=== PATIENT | male | born 2000 | race Caucasian/White ===

== ENCOUNTER 2018-11-17 11:31 | Outpatient (REF) | payer SELFPAY ==
[2018-11-20 12:11] LABS: Campylobacter PCR SEE COMMENTS; Salmonella PCR SEE COMMENTS; Shiga Toxin PCR SEE COMMENTS
[2018-11-20 14:16] LABS: Shigella/Enteroinvasive Ecoli SEE COMMENTS
== END 2018-11-17 11:51 ==
LOC: LBN 11:31
PROVIDERS: PCP Pediatrics; Visit Provider Internal Medicine Gastroenterology
DX: R10.12 Left upper quadrant pain (principal); R19.4 Change in bowel habit; K92.2 Gastrointestinal hemorrhage, unspecified
CPT/HCPCS: 87186; 87505; 83630; 87177; 87324

== ENCOUNTER 2021-03-29 19:06 | Outpatient (REF) | payer OTHER, SELFPAY ==
[2021-03-30 15:41] LABS: COVID-19 RT-PCR UVMMC Result Negative (Negative)
== END 2021-03-29 19:07 | disposition home or self-care (01) ==
LOC: NCHCN 19:06
PROVIDERS: PCP Pediatrics; Visit Provider Family Medicine
DX: Z20.822 Contact with and (suspected) exposure to COVID-19 (principal)
CPT/HCPCS: U0003

== ENCOUNTER 2021-06-01 10:48 | Outpatient (REF) | payer OTHER, SELFPAY ==
--- NOTE | 2021-06-01 09:30 | SKI_PTH ---
PATIENT: Jase Monet LOC: [facility] U#:[id number] AGE/SX: 21/M ROOM: RE06/01/[address]: RAYMOND Lang : 2000 BED: DIS: 06/01/2021 SPEC #: [id number] RECD: 06/01/21 17:28 STATUS: NAOMI REElisabeth #: [id number] JEREMY: 06/01/21 09:[address]: Leonardo Mayorga DEPT: Surgical Specimen RECD BY: Zulma Roa ENTERED: 06/01/21 17:28 SP TYPE: JARROD CALIXTO DR: Krys Elliott Unknown,Unknown Tissues: 1 - SKIN BIOPSY(SHAVE/PUNCH) Procedures: SKIN LEVEL 4 SPECIAL STAIN 1 Comments: [id number]
== END 2021-06-01 10:49 | disposition home or self-care (01) ==
LOC: LBN 10:48
PROVIDERS: Visit Provider Physician Assistant
DX: L30.9 Dermatitis, unspecified (principal)
CPT/HCPCS: 88305; 88312

== ENCOUNTER 2021-10-31 09:49 | Outpatient (REF) | payer OTHER, SELFPAY | END 2021-10-31 09:50 | disposition home or self-care (01) | LOC: LBN 09:49 | PROVIDERS: Visit Provider Nurse Practitioner Family | DX: J02.9 Acute pharyngitis, unspecified (principal) | CPT/HCPCS: 87070 ==

== ENCOUNTER 2024-04-27 21:57 | Emergency (ER) | payer BC, SELFPAY ==
[2024-04-27 22:01] VITALS: BP 134/86; PULSE 67; RESP 14; TEMP 36.7; O2SAT 98
--- NOTE | 2024-04-27 22:28 | ED.GENADUL_ITS ---
Discharge Plan Disposition Patient Disposition: Home Condition: Stable Discharge Details Clinical Impression: BRBPR (bright red blood per rectum) Primary Care Provider: Unknown,Unknown ED Provider: Petr Cunningham Home Meds and New Rx's Prescriptions: No Action No Known Home Meds Discharge Instructions Additional Instructions: Your evaluated and show any emergent concerning findings I placed you on a follow-up list to follow-up with a general surgeon for potential colonoscopy If you feel more ill, have severe abdominal pain or difficulty breathing return to the emergency department for reevaluation HPI General Mode of arrival: ambulatory . Date/Time Provider Initiated Documentation: 04/27/24 22:04 . Limitations to Documentation: no limitations . Information obtained by: patient . History of Present Illness 24 year old M presents to the emergency department with the chief complaint of Bloody bowel movements, described as moderate, Patient started experiencing this year(s) (2) and it has been intermittent. No relieving factors improve symptom(s), No exacerbating factors reported . Patient notes no other symptoms.. Patient did receive the following treatments prior to arrival, none Related Data Home Medications ?Medication ?Instructions ?Recorded ?Confirmed Unknown [No Known Home Meds] 11/13/21 Allergies Allergy/AdvReac Type Severity Reaction Status Date / Time No Known Allergies Allergy Unverified 08/09/22 09:14 General Stated Complaint: GI Bleed HEATHER: 3 Review of Systems All systems reviewed & are unremarkable except as noted in HPI and below Constitutional Constitutional: Denies chills and Denies fever(s) Cardiovascular Cardiovascular: Denies chest pain and Denies dyspnea Respiratory Respiratory: Denies cough and Denies dyspnea Gastrointestinal Gastrointestinal: Denies abdominal pain, Reports hematochezia, Denies nausea and Denies vomiting Psychiatric Psychiatric: Denies depression Exam Const General: no acute distress Orientation: alert [facility] Head: normal to inspection Ears: external ears normal General nose exam: external nose normal Mouth: moist mucous membranes Eyes General: appearance normal, both eyes and all related structures Neck Neck: normal visual inspection Resp Effort & Inspection: normal respiratory effort and able to speak in complete sentences Cardio Rate: regular rate GI Palpation: soft and nontender Skin General skin exam: no rashes or lesions noted Neuro General: patient alert and patient oriented x3 Extrem General: normal to inspection Psych Mental Status: mental status grossly normal Course Vital Signs Vital signs: Vital Signs Temperature 36.7 C 04/27/24 22:01 Pulse 67 01/28/25 22:01 Respiratory Rate 14 04/27/24 22:01 Blood Pressure 134/86 04/27/24 22:01 Pulse Oximetry 98 04/27/24 22:01 Temperature 36.7 C 04/27/24 22:01 Temperature Source Temporal Artery Scan 04/27/24 22:01 Pulse 67 04/27/24 22:01 Respiratory Rate 14 04/27/24 22:01 Blood Pressure 134/86 04/27/24 22:01 Blood Pressure Position Sitting 04/27/24 22:01 Pulse Oximetry 98 04/27/24 22:01 Oxygen Delivery Method Room Air 04/27/24 22:01 Oxygen Flow Rate 0 04/27/24 22:01 Pain Level 2 04/27/24 22:01 Medical Decision Making 24-year-old male who denies any chronic medical problems comes in with chief complaint of intermittent bloody bowel movements for couple years. He denies any fevers, vomiting. He says today he had a bloody bowel movement so decided to get evaluated. He is well-appearing on exam and hemodynamically stable. He has a soft nontender abdomen. No visible bleeding currently on exam the rectum, no external hemorrhoids. I do suspect he probably likely has internal hemorrhoids given he has no pain. Will check a CBC and CMP and reassess. Patient has very mild anemia no prior to compare to. She remains hemodyna mically stable. I offered to refer him to general surgery but he declines because he can talk with his PCP tomorrow about possibly being referred to a shoe folder. Return precautions given Differential Diagnosis Differential Diagnosis: Anemia, internal hemorrhoids Lab Data Lab results reviewed: Yes I reviewed the patient's lab results. Quality:SDOH Health Related Social Needs: No Data to Display PFSH All Active Problems (Updated 04/27/24 @ 22:48 by Petr Cunningham MD) BRBPR (bright red blood per rectum) (Acute) Pneumonia (Acute) Social History Smoking/Tobacco Use Status: Never Smoking risk assessment performed?: Yes Alcohol Intake: current Alcohol Intake frequency: a few times a week Alcohol type: beer Drug use: Occasionally Substance use type: marijuana Housing: apartment
[2024-04-27 22:39] LABS: Abs Immature Grans 0.04 10^3/uL (0.0-0.06); Absolute Basophil Count 0.08 10^3/uL (0.0-0.2); Absolute Eosinophil Count 0.42 10^3/uL (0.0-0.7); Absolute Lymphocyte Count 2.27 10^3/uL (1.2-3.4); Absolute Monocyte Count 1.37 10^3/uL (0.1-0.8); Absolute Neutrophil Count 5.15 10^3/uL (1.2-6.7); Basophils % 0.9 %; Eosinophils % 4.5 %; HCT 40.3 % (40.0-50.0); HGB 13.3 g/dL (13.5-17.5); Immature Grans % 0.4 %; Lymphocytes % 24.3 %; MCV 82 fL (80-95); MPV 8.4 fL (8.0-11.0); Monocytes % 14.7 %; Neutrophils % 55.2 %; Platelet Count 362 10^3/uL (130-400); RBC 4.93 10^6/uL (4.36-5.78); RDW 13.1 % (11.8-14.1); RDW-SD 38.6 fL; WBC 9.33 10^3/uL (4.4-10.8)
[2024-04-27 22:51] LABS: ALT 14 U/L (16-63); AST 12 U/L (15-37); Alkaline Phosphatase 63 U/L (46-116); Anion Gap 4.8 mmol/L (3-11); BUN 13 mg/dL (7-18); Bilirubin, Total 0.39 mg/dL (0.2-1.0); CO2 31.2 mmol/L (21.0-32.0); CREATININE 1.2 mg/dL (0.70-1.30); Calcium 8.4 mg/dL (8.5-10.1); Chloride 103 mmol/L (98-107); Estimated GFR 85.53 (mL/min/1.73m2); Glucose 132 mg/dL (74-106); Lipase 59 U/L (<78); Potassium 3.8 mmol/L (3.5-5.1); Sodium 139 mmol/L (136-145); Total Protein 6.9 g/dL (6.4-8.2)
[2024-04-27 23:19] LABS: Influenza A PCR Negative (Negative); Influenza B PCR Negative (Negative); RSV PCR Negative (Negative)
[2024-04-27 23:28] LABS: COVID-19 PCR Positive (Negative); Source Nasopharynx
== END 2024-04-27 23:37 | disposition home or self-care (01) ==
LOC: ER 23:53
PROVIDERS: Emergency Provider Emergency Medicine
DX: K62.5 Hemorrhage of anus and rectum (principal); U07.1 COVID-19
CPT/HCPCS: 80053; 83690; 87637; 99283; 83735; 85025

== ENCOUNTER 2024-05-07 17:18 | Outpatient (REF) | payer BC, SELFPAY ==
[2024-05-07 15:27] LABS: Abs Immature Grans 0.04 10^3/uL (0.0-0.06); Absolute Basophil Count 0.08 10^3/uL (0.0-0.2); Absolute Lymphocyte Count 2.24 10^3/uL (1.2-3.4); Absolute Monocyte Count 1.54 10^3/uL (0.1-0.8); Absolute Neutrophil Count 6.17 10^3/uL (1.2-6.7); Basophils % 0.8 %; Eosinophils % 3.8 %; HCT 36.3 % (40.0-50.0); HGB 11.9 g/dL (13.5-17.5); Immature Grans % 0.4 %; Lymphocytes % 21.4 %; MCH 26.7 pg (27.0-33.0); MCHC 32.8 % (32.0-36.0); MCV 82 fL (80-95); Monocytes % 14.7 %; Neutrophils % 58.9 %; Platelet Count 429 10^3/uL (130-400); RBC 4.45 10^6/uL (4.36-5.78); RDW 13.2 % (11.8-14.1); RDW-SD 39.4 fL; WBC 10.47 10^3/uL (4.4-10.8)
[2024-05-07 15:39] LABS: Diff Comment Diff Reviewed; RBC Morphology Normal
[2024-05-07 16:15] LABS: ALT 19 U/L (16-63); AST 12 U/L (15-37); Albumin 2.7 g/dL (3.4-5.0); Alkaline Phosphatase 65 U/L (46-116); Anion Gap 1.7 mmol/L (3-11); BUN 11 mg/dL (7-18); C-Reactive Protein 12.13 mg/dL (<or=0.5); CO2 31.3 mmol/L (21.0-32.0); CREATININE 1.1 mg/dL (0.70-1.30); Calcium 8.5 mg/dL (8.5-10.1); Chloride 102 mmol/L (98-107); Estimated GFR 94.95 (mL/min/1.73m2); Glucose 83 mg/dL (74-106); Potassium 4.6 mmol/L (3.5-5.1); Sodium 135 mmol/L (136-145); Total Protein 6.2 g/dL (6.4-8.2)
== END 2024-05-07 17:19 | disposition home or self-care (01) ==
LOC: NCHCN 17:18
PROVIDERS: PCP Family Medicine; Visit Provider Family Medicine
DX: K50.90 Crohn's disease, unspecified, without complications (principal)
CPT/HCPCS: 80053; 85025; 86140

== ENCOUNTER 2024-05-11 13:42 | Outpatient (REF) | payer BC, SELFPAY ==
--- OUTSIDE RECORDS SUMMARY | 2024-05-11 13:50 | XMS_ITS | Encounter Summary ---
Author Organization [facility] Address [facility] [place] [address] Care Team Providers Care Retail Delivery Driver Name Role Phone Marvin Irving MD, Lm Primary Care Provider [phone] Reason for Visit * Reason Comments Dermatitis Encounter Details Date Type Department Care Team (Late st Contact Info) Description 11/15/2014 4:15 PM EDT Office Visit Dermatology at [facility] [address] [place] [address] Bianca Griffith MD [facility] [address] [address] Psoriasis Discharge Disposition: Home Social History Tobacco Use Types Packs/Day Years Used Date Smoking Tobacco: Never Assessed Sex and Gender Information Value Date Recorded Sex Assigned at Not on file Gender Identity Not on file Sexual Orientation Not on file documented as of this encounter Patient Instructions * Patient Instructions* Radha Wyman - 11/15/2014 5:05 PM EDT Plan for Jase: -- I recommend rotating OTC dandruff shampoos containing salicylic acid (Tsal), zinc pyrithione (Head and Shoulders), and selenium sulfide (Selsun Blue) nightly. These shampoos must sit in contact with the scalp for 10 minutes to be effective - apply to wet scalp and then wrapping head in a towel while the child reads or watches TV can be helpful. -- Start Rx: Hydrocortisone 2.5% ointment twice daily for 10-14 days in the armpits and 5-7 days for the eyelids; then, reduce to just weekends. -- Start Rx: Triamcinolone lotion twice daily for scalp documented in this encounter Progress Notes * Angie Jara, LEARNING OPERATIONS SPECIALIST - 11/15/2014 4:47 PM EDT Images from the original note were not included. PEDIATRIC DERMATOLOGY NEW PATIENT VISIT CHIEF COMPLAINT: Chief Complaint Patient presents with ??? Dermatitis REFERRED BY: Loni Ramirez, PUBLIC ADMINISTRATION TEACHER [address] [place] [address] HISTORY OF PRESENT ILLNESS: Jase Monet is a 14 y.o. male, here with his mom Lynne today for consultation at the requestof Loni Ramirez for evaluation of a rash in his armpits. This first appeared in early August. Previous treatments include ketoconazole cream and clotrimazole cream with no relief. He did try his mom's protopic which helped. He notices that if he sweats it is more irritated. He uses Old Spice [place], dry not gel. Mom reports that she and her daughter are both allergic to topical steroids. The patient's dermatology intake form was reviewed, signed, and dated. Okay to leave a detailed message on home number. His relevant PMH, FH, and SH includes: PAST MEDICAL HISTORY: Otherwise healthy FAMILY HISTORY: Eczema Acne Tinea Pedis Psoriasis- Maternal Aunt SOCIAL HISTORY: Lives with Mom Lynne Dad Waldo Sister's Molly 9 Mera 14 Brother Lionel 7 MEDICATIONS: None ALLERGIES: Allergies not on file REVIEW OF SYSTEMS: Please see HPI and PMH. No fevers, rhinorrhea, cough, decreased appetite, diarrhea, or vomiting. PHYSICAL EXAMINATION: Christy skin type II The patient is a well appearing male who is developmentally appropriate. A complete skin examination was performed including the scalp, face, eyelids, ears, lips, neck, chest, back, abdomen, buttocks, bilateral arms and legs, bilateral hands and feet, and nails. Findings were within normal limits except for the following: - Well demarcated pink slightly scaly plaque in the left axillary vault, no notable fluorescence with Wood's lamp. - well defined pink slight scaly plaque in the right axilla - small number of small inflammatory papules on back and chest, as well as forehead - no evidence of scarring. - thin pink scaly plaques throughout the scalp - thin pink plaques in the bilateral medial upper eyelids and medial canthi ASSESSMENT AND PLAN: Well-demarcated pink scaly plaques in the axilla with thick scaly plaques in the scalp, most consistent with psoriasis. +family history of psoriasis also makes this diagnosis themost likely. Lack of fluorescence with Cantu lamp makes erythrasma unlikely. We discussed the pathophysiology of psoriasis which is not completely understood but involves abnormal inflammation in the skin characterized by a mainly Th1 and Th17 cell infiltrate. Certain genes confer a risk of psoriasis, and external factors such as obesity and smoking may trigger the clinicaldevelopment in genetically prone individuals. Psoriatric arthritis develops in up to 30% of patients with psoriasis and most commonly presents as an asymmetric oligoarthritis or as enthesitis (most commonly of the Achillies tendon insertion on the calcaneus). Joints may be red, hot, and swollen or patients may have achy joint pain that is worst in the morning. Psoriasis is a systemic inflammatory disease and has been shown to increase the risk of cardiovascular events including myocardial infarction and stroke. Psoriasis is a chronic inflammatory skin condition, and that treatment is not aimed at curing the disease but instead at controlling it. Discussed the evidence that obesity worsens psoriasis, and encouraged weight loss and exercise. There is convincing evidence in the medical literature now that pso riasis is an independent risk factor for coronary artery disease, so a healthy lifestyle is crucial. Discussed the warning signs of psoriatic arthritis (asymmetric inflammatory oligoarthritis which can affect small and large joints, and enthesitis most typically on the Achilles insertion onto the calcaneus). The National Psoriasis foundation is an excellent resource for families (www.psoriasis.org) and primary care providers. The most up-to-date guidelines recommend that pediatric patients with psoriasis should undergo regular screening for metabolic syndrome as follows: Ages 2-8 year old: no routine bloodwork Ages 9 and older: annual lipid screen; AST/ALT and fasting glucose if overweight or obese -- Start Rx: Hydrocortisone 2.5% ointment BID for 10-14 days in the armpits and 5-7 days for the eyelids; then, reduce to just weekends. Can increase to triamcinolone at next visit if need be. Unfortunately his insurance will not cover Protopic. -- Start Rx: Triamcinolone lotion BID for scalp -- recommended rotating OTC dandruff shampoos containing salicylic acid (Tsal), zinc pyrithione (Head and Shoulders), and selenium sulfide (Selsun Blue) nightly. Explained that these shampoos must sit in contact with the scalp for 10 minutes to be effective - applying to scalp then wrapping head june towel while the child reads or watches TV can be helpful. RTC: 3 weeks (Level 2) Angie Jara CMA has performed the documentation for this encounter in the presence of and actingas a scribe for Dr. Griffith. I performed the above scribed services and agree with the accuracy of the documentation in this encounter. Radha Wyman has performed the documentation for this encounter in the presence of and acting asa scribe for Dr. Griffith. I performed the above scribed services and agree with the accuracy of the documentation in this encounter. Bianca Griffith MD Seat Cover Cutter, Pediatric Dermatology Section of Dermatology [facility], [address]. [facility] documented in this encounter Plan of Treatment Not on file documented as of this encounter Visit Diagnoses Diagnosis Psoriasis Other psoriasis documented in this encounter Care Teams Retail Delivery Driver Relationship Specialty Start Date End Date [place] [address] PCP - General 02/20/10 12/01/14 documented as of this encounter
--- OUTSIDE RECORDS SUMMARY | 2024-05-11 13:50 | XMS_ITS | Encounter Summary ---
Author Organization [facility] Address [address] [place] [address] Care Team Providers Care Electrical Engineer Mep Name Role Phone Lm Wong MD Primary Care Provider Paco mendez Unknown, Provider Primary Care Provider Lm Trammell MD Unavailable Unavailable Encounter Details Date Type Department Care Team (Late st Contact Info) Description 03/29/2021 Lab Requisition [facility] Pathology & Laboratory Medicine - [address] [address] Outr Resulting Lab, Provider Social History Tobacco Use Types Packs/Day Years Used Date Smoking Tobacco: Never Assessed Sex and Gender Information Value Date Recorded Sex Assigned at Not on file Legal Sex Male 18:30 EST Gender Identity Not on file Sexual Orientation Not on file documented as of this encounter Plan of Treatment Not on file documented as of this encounter Procedures Procedure Name Priority Date/Time Associated Diagnosis Comments ZZCOVID-19 TEST [facility] PCR Today 03/29/2021 11:15 EST COVID-19 TESTING Routine 03/29/2021 11:1 5 EST documented in this encounter Results * COVID-19 TEST [facility] PCR (03/29/2021 11:15 EST) Swab 03/29/2021 11:1 5 EST 03/29/2021 21:48 EST us Provider Outr Resulting Lab MICROBIOLOGY - GENER AL ORDERABLES Final Result [facility] [address] [place] [address] * COVID-19 TESTING (03/29/2021 11:15 EST) COVID-19 rt-PCR Result Negative Negative 03/30/2021 15:37 EST [facility] Comment: This test has not been FDA cleared or approved. This test has been authorized by FDA under an EUA for use by authorized laboratories. This test has been authorized only for detection of nucleic acid from 2019-nCoV, not for any other viruses or pathogens. This test is only authorized for the duration of the declaration that circumstances exist justifying the authorization of emergency use of in vitro diagnostic tests for detection and/or diagnosis of 2019-nCoV under section 564(b)(1) of Act, 21 U.S.C ?? 360bbb-3(b) (1), unless the authorization is terminated or revoked sooner. Negative results do not preclude 2019-nCoV infection and should not be used as the sole basis for treatment or other patient management decisions. Negative results must be combined with clinical observations, patient history, and epidemiological information. Performed on the Possible Webher Fusion instrument Performing Lab [place] [facility] Lab 03/30/2021 15:37 EST [facility] Swab 03/29/2021 11:1 5 EST 03/29/2021 21:48 EST us Provider Outr Resulting Lab MICROBIOLOGY - GENER AL ORDERABLES Final Result Performing Organization Address [facility] Co de Phone Number [facility] [address] [place] [address] documented in this encounter Visit Diagnoses Not on filedocumented in this encounter Care Teams Electrical Engineer Mep Relationship Specialty Start Date End Date Lm Wong MD PCP - General 02/09/15 04/30/21 Unknown, MD Cammy PCP - General 05/01/21 Lm Wong MD 05/01/21 documented as of this encounter
--- OUTSIDE RECORDS SUMMARY | 2024-05-11 13:50 | XMS_ITS | Clinical Summary ---
Author Organization [facility] Address [address] [place] [address] Care Team Providers Care Automation And Controls Instructor Name Role Phone Unknown, Provider Primary Care Provider David Wong, Lm Zavala MD Unavailable Unavailable Social History Tobacco Use Types Packs/Day Years Used Date Smoking Tobacco: Never Assessed Sex and Gender Information Value Date Recorded Sex Assigned at Not on file Legal Sex Male 18:30 EST Gender Identity Not on file Sexual Orientation Not on file Plan of Treatment Health Maintenance Due Date Last Done Comments Hepatitis C Screen 2000 Hepatitis B Vaccine (1 of 3 - 19+ 3-dose series) 02/22 COVID-19 Vaccine (2023- season) 2023 Insurance [facility] Care Teams Automation And Controls Instructor Relationship Specialty Start Date End Date Unknown, Cammy, PCP - General 05/01/21 Lm Wong MD 05/01/21
--- OUTSIDE RECORDS SUMMARY | 2024-05-11 13:50 | XMS_ITS | Encounter Summary ---
Author Organization [facility] Address [facility] [place] [address] Care Team Providers Care Columnist Name Role Phone Lm Wong MD Primary Care Provider [phone] Reason for Visit * Reason Comments Follow-up Encounter Details Date Type Department Care Team (Late st Contact Info) Description 12/06/2014 2:30 PM EDT Office Visit Dermatology at [facility] [address] [place] [address] Bianca Griffith MD [facility] [address] [place] [address] Psoriasis Discharge Disposition: Home Social History Tobacco Use Types Packs/Day Years Used Date Smoking Tobacco: Never Sex and Gender Information Value Date Recorded Sex Assigned at Not on file Gender Identity Not on file Sexual Orientation Not on file documented as of this encounter Patient Instructions * Patient Instructions* Radha Wyman - 12/06/2014 4:02 PM EDT Plan for Jase: -- Continue Rx: Hydrocortisone 2.5% ointment twice daily on weekends. Can increase to triamcinoloneat next visit if need be. Unfortunately his insurance will not cover Protopic. -- Continue Rx: Triamcinolone lotion twice daily for scalp on weekends -- continue rotating OTC dandruff shampoos containing salicylic acid (Tsal), zinc pyrithione (Head and Shoulders), and selenium sulfide (Selsun Blue) nightly. Explained that these shampoos must sit in contact with the scalp for 10 minutes to be effective - applying to scalp then wrapping head in a towel while the child reads or watches TV can be helpful --Start Rx: Protopic apply topically to armpits nightly Mon-Fri for maintenance. (out of pocket cost is $100 at [facility]) documented in this encounter Progress Notes * Gina Kahn LPN - 12/06/2014 3:40 PM EDT Images from the original note were not included. PEDIATRIC DERMATOLOGY FOLLOW-UP VISIT S: Jase Monet is here today for follow-up of psoriasis on his eyelids, axilla and scalp. he was last seen by myself on 11/15/2014, at which time treatment recommendations included hydrocortisone2% cream for body and triamcinolone lotion for scalp, he has been using once daily . The psoriasis on his axilla and eyelids is much better. He noticed thought that if he went one day without using hydrocortisone cream that it would start to come back, he thinks he needs something stronger. His scalp is better, he has been applying triamcinolone lotion once daily after showers, and he uses a dandruff shampoo. He has some acne, and was prescribed a benzoyl peroxide type cream ( he cannot remember) from [facility] pediatrics. He says that it is not helping. Review of Systems: Other than those stated above, the patient denies any fevers, chills, night sweats, weight loss, loss of appetite or other skin complaints. Medications: Current Outpatient Prescriptions Medication Sig Dispense Refill ??? triamcinolone (KENALOG) 0.1 % Lotion Apply to scalp every night for 10-14 days, then just on weekends 60 mL 0 ??? hydrocortisone 2.5 % Cream Apply to eyelid twice a day for 5-7 days and the armpits twice a dayfor 10-14 days then weekends only to eyelid and armpits 30 g 0 No current facility-administered medications for this visit. Allergies: No Known Allergies PMHx: There is no problem list on file for this patient. FAMILY HISTORY: Eczema Acne Tinea Pedis Psoriasis- Maternal Aunt SOCIAL HISTORY: Lives with Mom Lynne Haas Sister's Molly 9 Mera 14 Brother Lionel Duque O: Well-appearing, interactive, and developmentally appropriate. A full body skin examination was performed of the scalp, face, eyelids, lips, neck, chest, abdomen,back, bilateral arms, buttocks, bilateral legs, hands, feet and nails. Findings were within normal limits except for as follows: - bilateral axilla and face are clear today - a few small inflammatory acneiform papules on the central face A/P: 1. Inverse psoriasis involving b/l axillae, but also eyelids, in the setting of a +family history of psoriasis. Jase has had improvement from the hydrocortisone 2.5% ointment, and today we discussed the importance of introducing a steroid-sparing agent given the risks of striae with ad terminal makeup operator topical steroid use in a flexural area, but Unfortunately his insurance will not cover Protopic. -- reduce hydrocortisone 2.5% ointment to BID on weekends. Can increase to triamcinolone at next visit if need be. --Start Rx: Protopic 0.1% ointment nightly Mon-Fri for maintenance. Jase will talk with his parents to ensure that they can pay the out of pocket cost for this medication ($[facility] at [facility]). We had an extensive discussion about the risks and benefits of Protopic ointment, a non-steroidal topical immunomodulator. Protopic is a steroid sparing agent and has been shown to decrease the need for use of topical steroids in patients with moderate to severe atopic dermatitis. It is generally very well tolerated, but the most commonly reported adverse events are application-site irritation, skin burning, and pruritus. It is currently FDA approved for intermittent use in controlling atopic dermatitis. We discussed the safety profile of this medication at length. We reviewed the evidence in the medical literature showing that there is minimal systemic absorption of the medication in children with moderate to severe atopic dermatitis, as the vast majority of studies show that blood levels are lessthan 1ng/mL. Furthermore, as skin barrier function improves, trans-cutaneous absorption of tacrolimus ointment decreases, as evidenced by decreasing serum levels of tacrolimus in patients who use theointment residential. We also discussed the 2006 black box warning on Protopic ointment based on a theoretical risk arising from the systemic use of calcineurin inhibitors in transplant recipients and animal studies. Extensive safety data have been analyzed from more than 20,000 clinical trial participants using tacrolimus ointment. To date, there is no evidence to suggest that there is an increased risk of lymphoma or nonmelanoma skin cancer in adults or children using tacrolimus ointment. The incidence of cutaneous bacterial and viral infections in pediatric patients is not affected by long-term use of tacrolimus ointment. For scalp involvement: -- continue triamcinolone lotion BID for scalp on weekends -- recommended rotating OTC dandruff shampoos containing salicylic acid (Tsal), zinc pyrithione (Head and Shoulders), and selenium sulfide (Selsun Blue) nightly. Explained that these shampoos must sit in contact with the scalp for 10 minutes to be effective - applying to scalp then wrapping head june towel while the child reads or watches TV can be helpful RTC: 2 months (Level 2) GINA KAHN LPN has performed the documentation for this encounter in the presence of and acting as a scribe for Dr. Bianca Griffith MD. I performed the above scribed service and agree with the accuracy of the documentation in this encounter. Radha Wyman has performed the documentation for this encounter in the presence of and acting asa scribe for Dr. Griffith. I performed the above scribed services and agree with the accuracy of the documentation in this encounter. Bianca Griffith MD Sheet Rock Installer, Pediatric Dermatology Section of Dermatology [facility], Nahomy Rasmussen [facility] at [facility] documented in this encounter Plan of Treatment Not on file documented as of this encounter Visit Diagnoses Diagnosis Psoriasis Other psoriasis documented in this encounter Care Teams Columnist Relationship Specialty Start Date End Date Lm Wong MD [address] [place] [address] [place] [address] PCP - General 12/02/14 08/13/21 documented as of this encounter
--- OUTSIDE RECORDS SUMMARY | 2024-05-11 13:50 | XMS_ITS | Encounter Summary ---
Author Organization [facility] Address [facility] [place] [address] Care Team Providers Care Physician Surgeon Name Role Phone Lm Wong MD Primary Care Provider [phone] Reason for Visit * Reason Onset Date Comments Medication Refill 12/22/2014 Encounter Details Date Type Department Care Team (Late st Contact Info) Description 12/22/2014 Refill Dermatology at [facility] [address] [place] [address] Bianca Griffith MD [facility] [address] [place] [address] Psoriasis Social History Tobacco Use Types Packs/Day Years Used Date Smoking Tobacco: Never Sex and Gender Information Value Date Recorded Sex Assigned at Not on file Gender Identity Not on file Sexual Orientation Not on file documented as of this encounter Plan of Treatment Not on file documented as of this encounter Visit Diagnoses Diagnosis Psoriasis Other psoriasis documented in this encounter Care Teams Physician Surgeon Relationship Specialty Start Date End Date Lm Wong MD [address] [place] [address] [place] [address] PCP - General 12/02/14 08/13/21 documented as of this encounter
--- OUTSIDE RECORDS SUMMARY | 2024-05-11 13:50 | XMS_ITS | Encounter Summary ---
Author Organization [facility] Address [address] [place] [address] Care Team Providers Care Medical Assistant Per Diem Name Role Phone Unknown, Provider Primary Care Provider Lm Trammell MD Unavailable Unavailable Encounter Details Date Type Department Care Team (Late st Contact Info) Description 06/04/2021 Lab Requisition [facility] Pathology & Laboratory Medicine - [address] [address] Leonardo Mayorga [address] [place] [address] [place] [id number] Rash and other nonspecific skin eruption Social History Tobacco Use Types Packs/Day Years [...] Procedure Name Priority Date/Time Associated Diagnosis Comments SURGICAL PATHOLOGY Today 06/01/2021 9: 30 EST Rash and other nonspecific skin eruption documented in this encounter Results * SURGICAL PATHOLOGY (06/01/2021 9:30 EST) Note to Patient The following pathology results have been interpreted by your pathologist and may be available to you before your health provider has had the opportunity to review them. Please allow time for your provider to receive these results and explore management options, if applicable. 06/07/2021 11:43 [facility] Final Diagnosis A. SKIN OF FOREARM, LEFT, SHAVE BIOPSY: - Subacute spongiotic dermatitis. See comment. 06/07/2021 11:43 [facility] Diagnosis Comment The biopsy shows features of spongiotic (eczematous) dermatitis with a moderate degree of epidermal hyperplasia and scale formation. The features could represent nummular eczema. Other forms of eczematous dermatitis would be included in the differential diagnosis. No fungal organisms are identified with PAS stain. The features are not suggestive of psoriasis or dermatitis herpetiformis. 06/07/2021 11:43 [facility] Attestation By the signature below, the attending physician certifies that they have 1) personally conducted a gross and/or microscopic examination of the described specimen(s), and/or personally interpreted the results of laboratory testing of the described specimen(s), and 2) personally rendered or confirmed the above diagnosis. 06/07/2021 11:43 [facility] at 1143 Microscopic Description Sections consist of a shave biopsy of skin to the mid reticular dermis. There is hyperkeratosis with focal parakeratosis and scale crust. The epidermis is irregularly hyperplastic with elongated thickened rete ridges. There is mild degree of spongiosis with lymphocytic exocytosis. In some areas, the lymphocytes are slightly enlarged but, in general, there are small and without atypia. The superficial dermis has a moderately dense infiltrate of small lymphocytes and histiocytes. The vessels show reactive changes. No fungal organisms are identified on sections prepared with PAS-diastase stain. 06/07/2021 11:43 [facility] Clinical History History Crohn's; raised itchy flaky rash; psoriasis vs eczema vs dermatitis herpetiformis; clinical diagnosis code: R21 06/07/2021 11:43 [facility] Gross Description A. Received in formalin labelled with proper patient identification (initials M, J) and L forearm is a 1.0 x 0.7 x 0.1 cm irregular shave of hair-bearing christiansen skin. The margin is inked. The specimen is trisected and entirely submitted in A1. RAYMOND GLOVER(ASCP) 06/04/2021 11:04 06/07/2021 11:43 [facility] Performing Lab [facility] 06/07/2021 11:43 EST [facility] Scanned Images 06/07/2021 11:43 EST [facility] Tissue TISSUE SPECIMEN FROM SKIN / Unknown 06/01/2021 9:30 EST 06/04/2021 7:57 EST Leonardo ANDRADE PATHOLOG[facility] ORDERABLES Final Result [facility] [address] [place] [address] documented in this encounter Visit Diagnoses Diagnosis Rash and other nonspecific skin eruption documented in this encounter Care Teams Medical Assistant Per Diem Relationship Specialty Start Date End Date Unknown, Provider, PCP - General 05/01/21 Lm Wong MD 05/01/21 documented as of this encounter
--- OUTSIDE RECORDS SUMMARY | 2024-05-11 13:50 | XMS_ITS | Referral Summary ---
Author Organization [facility] Address [address] [place] [address] Care Team Providers Care Service Loss Control Consultant Name Role Phone Unknown, Provider Primary Care Provider David Wong, Lm Zavala MD Unavailable Unavailable Social History Tobacco Use Types Packs/Day Years Used Date Smoking Tobacco: Never Assessed Sex and Gender Information Value Date Recorded Sex Assigned at Not on file Legal Sex Male 18:30 EST Gender Identity Not on file Sexual Orientation Not on file Plan of Treatment Not on file Insurance [facility] Care Teams Service Loss Control Consultant Relationship Specialty Start Date End Date Unknown, Cammy, PCP - General 05/01/21 Lm Wong MD 05/01/21
--- OUTSIDE RECORDS SUMMARY | 2024-05-11 13:50 | XMS_ITS | Clinical Summary ---
Author Organization [facility] Address [facility] [place] [address] Care Team Providers Care Coffee Roaster Name Role Phone None Primary Care Provider Unavailabl e Allergies No known active allergies Medications Medication Sig Dispensed Refills Start Date End Date Status triamcinolone (KENALOG) 0.1 % LotionIndications:Pso riasis Apply to scalp every night for 10-14 days, then just on weekends 60 mL 0 11/16/2014 Active tacrolimus (PROTOPIC) 0.1 % Ointment Apply to areas of psoriasis 1-2 times daily Friday-Friday. 30 g 3 12/06/2014 Active hydrocortisone 2.5 % CreamIndications:Psor iasis Apply to eyelid twice a day for 5-7 days and the armpits twice a day for 10-14 days then weekends only to eyelid and armpits 30 g 0 12/22/2014 Active Active Problems Problem Noted Date Diagnosed Date Psoriasis 12/07/2014 Encounters Date Type Department Care Team Description 05/10/2024 Transcribe Orders [facility] Incoming Referrals [phone] Shiela Quezada MD Crohn's disease with complication, unspecified gastrointestinal tract location from Last 3 Months Social History Tobacco Use Types Packs/Day Years Used Date Smoking Tobacco: Never Sex and Gender Information Value Date Recorded Sex Assigned at Not on file Gender Identity Not on file Sexual Orientation Not on file Plan of Treatment Health Maintenance Due Date Last Done Comments HPV vaccine (1 - Male 3-dose series) 2013 HIV screen 02/23/2016 Hepatitis C Screening 02/23/2016 Hepatitis B vaccine (0-59 yrs) (1) 2017 Tetanus/Diphtheria/Pertussis Vaccines (1 - Tdap) 02/22 Covid-19 Vaccine ( - season) 2023 Influenza (Flu) vaccine (1 o f 1 - Influenza standard series) 11/30/2023 Care Teams Coffee Roaster Relationship Specialty Start Date End Date None None PCP - General 05/10/24
--- OUTSIDE RECORDS SUMMARY | 2024-05-11 13:50 | XMS_ITS | Encounter Summary ---
[place] [address] Care Team Providers Care Radiotelegrapher Name Role Phone None Primary Care Provider Unavailabl e Reason for Referral * Consultation (Urgent) - Authorized Specialty Diagnoses / Procedures Referred By Mao stephen Referred To Contact Gastroenterology Diagnoses Crohn's disease with complication, unspecified gastrointestinal tract location PRIOR DIAGNOSIS OF CROHNS, NOT ON TREATMENT, RECENTLY W/ ABDOMINAL PAIN AND PROFUSE BRBPR, HEMOGLOBIN HAS DROPPED FROM 13.3 ON 05/01 TO 11.9 ON 05/07, SEEN 05/10 AT [facility] [place] BUT URGENCY OF SITUATION DID NOT SEEM TO BE APPRECIATED, ON PREDNISONE SINCE 05/07, CRP 12, ALBUMIN LOW AT 2.7 Shiela Quezada MD [address] [place] [address] [facility] [place] [address] Referral ID Status Reason Start Date Expiration Date Visits Requested Visits Authorized [id number] Authorized Consult, Test & Treat PCP Updated and/or Approved 05/10/2024 05/10/2025 6 6 Encounter Details Date Type Department Care Team (Latest Contact Info) Description 05/10/2024 Transcribe Orders [facility] Incoming Referrals [phone] Shiela Quezada MD [address] [place] [address] Crohn's disease with complication, unspecified gastrointestinal tract location Social History Tobacco Use Types Packs/Day Years Used Date Smoking Tobacco: Never Sex and Gender Information Value Date Recorded Sex Assigned at Not on file Gender Identity Not on file Sexual Orientation Not on file documented as of this encounter Plan of Treatment Scheduled Referrals Name Type Priority Associated Diagnoses Orde r Schedule Referral to Gastroenterology Outpatient Referral Urgent Crohn's disease with complication, unspecified gastrointestinal tract location Ordered: 05/10/2024 documented as of this encounter Visit Diagnoses Diagnosis Crohn's disease with complication, unspecified gastrointestinal tract location documented in this encounter Care Teams Radiotelegrapher Relationship Specialty Start Date End Date None None PCP - General 05/10/24 documented as of this encounter
[2024-05-11 14:14] LABS: HGB 11.4 g/dL (13.5-17.5)
== END 2024-05-11 13:43 | disposition home or self-care (01) ==
LOC: NCHCN 13:42
PROVIDERS: PCP Family Medicine; Visit Provider Family Medicine
DX: K50.919 Crohn's disease, unspecified, with unspecified complications (principal)
CPT/HCPCS: 85018

== ENCOUNTER 2024-06-09 13:25 | Outpatient (CLI) | payer SELFPAY ==
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
== END 2024-06-09 13:26 | disposition home or self-care (01) ==
PROVIDERS: PCP Family Medicine; Visit Provider Dietitian, Registered
DX: K50.919 Crohn's disease, unspecified, with unspecified complications (principal)
CPT/HCPCS: 00123; 97802